=== PATIENT | female | born 1990 | race African-American/Black ===

== ENCOUNTER 2018-10-09 07:20 | Outpatient (CLI) | payer OTHER ==
[~2018-10-09 07:20] MED LIST: AMOX1TAB12 PO; AMOXICILLIN500 MG PO
== END 2018-10-09 09:00 | disposition home or self-care (01) ==
LOC: RAD 07:20 → MAMO-SONO 09:15
DX: M60.89 Other myositis, multiple sites (principal); M54.17 Radiculopathy, lumbosacral region; R10.84 Generalized abdominal pain; K21.9 Gastro-esophageal reflux disease without esophagitis
CPT/HCPCS: 72148